=== PATIENT | female | born 2000 | race Caucasian/White ===

== ENCOUNTER 2020-09-20 17:58 | Emergency (ER) | payer OTHER ==
[~2020-09-20] VITALS: Ht 172.7 cm; Wt 56.8 kg
[2020-09-20] MEDS ORDERED: FLEXERIL 1010 MG/TAB PO (18:42)
[2020-09-20 18:50] VITALS: BP 122/84; PULSE 90; TEMP 98.3
== END 2020-09-20 18:53 | disposition home or self-care (01) ==
LOC: COL.ER 17:58
DX: M54.6 Pain in thoracic spine (principal); M62.838 Other muscle spasm